=== PATIENT | female | born 1955 | race Caucasian/White ===

== ENCOUNTER 2019-05-02 17:47 | Inpatient (IN) | payer OTHER ==
[~2019-05-02] VITALS: Ht 172.7 cm; Wt 162.8 kg
[2019-05-02] MEDS ORDERED: LORA10TA7 PO (17:55)
[2019-05-02] MEDS ORDERED: LEVO50 PO (17:55)
[2019-05-02] MEDS ORDERED: FURO20 PO (17:55)
[2019-05-02] MEDS ORDERED: ATOR10TA84 PO (17:55)
[2019-05-02] MEDS ORDERED: MULT-1203 PO (17:55)
[2019-05-02] MEDS ORDERED: ASPI81 PO (17:55)
[2019-05-02] MEDS ORDERED: VALS1TAB54 PO (17:55)
[2019-05-02] MEDS ORDERED: RISP2 PO (17:58)
[2019-05-02] MEDS ORDERED: ALBUTEROL SULFATE 5 MG/ML 20 ML NEB SOLN [BULK] NEB ONE (18:00)
[2019-05-02] MEDS ORDERED: MethylPREDNISolone SOD SUCC 125 MG/2 ML VIAL IVP ONE (18:00)
[2019-05-02] MEDS ORDERED: IPRATROPIUM BROMIDE 0.5 MG/2.5 ML NEB SOLUTION NEB ONE (18:00)
[2019-05-02] MEDS ORDERED: 0.9% SODIUM CHLORIDE 10 ML SYRINGE IVP PRN ×2 (18:00→21:45)
[2019-05-02] MEDS ORDERED: QUET25TA PO (18:12)
[2019-05-02] MEDS ORDERED: METF-960 PO (18:12)
[2019-05-02] MEDS ORDERED: BENZ2TAB10 PO (18:12)
[2019-05-02] MEDS ORDERED: IBUP-2071 PO (18:12)
[2019-05-02] MEDS ORDERED: DICY10 PO (18:12)
[2019-05-02] MEDS ORDERED: KDUR10 PO (18:12)
[2019-05-02] MEDS ORDERED: SODIUM CHLORIDE 0.9% 2,500 ML IV ONE (18:15)
[2019-05-02] MEDS ORDERED: SUCCINYLCHOLINE CHLORIDE 20 MG/ML 10 ML VIAL IVP ONE (18:15)
[2019-05-02] MEDS ORDERED: ETOMIDATE 2 MG/ML 10 ML VIAL IVP ONE (18:15)
[2019-05-02] MEDS: PROPOFOL 1000 MG/ISO-OSM 100 ML IV PRN ×2 (18:24→22:56)
[2019-05-02 18:49] LABS: BASOPHILS % (AUTO) 0.2 % (0.0-2.0); EOSINOPHILS % (AUTO) 0.1 % (1.0-6.0); HEMATOCRIT 41.1 % (36-46); HEMOGLOBIN 13.2 g/dL (12.0-16.0); LYMPHOCYTES # (AUTO) 1.7 K/uL (1.0-4.8); LYMPHOCYTES % (AUTO) 8.6 % (22.0-44.0); MEAN CORPUSCULAR HEMOGLOBIN 28.1 pg (26.0-34.0); MEAN CORPUSCULAR VOLUME 88 fL (80-100); MONOCYTES # (AUTO) 0.8 K/uL (0.1-1.0); MONOCYTES % (AUTO) 3.8 % (2.0-9.0); NEUTROPHILS # (AUTO) 17.4 K/uL (1.8-7.7); PLATELET COUNT (AUTO) 509 K/uL (150-450); RED BLOOD CELL COUNT(AUTO) 4.69 MIL/uL (4.00-5.20); RED CELL DISTRIBUTION WIDTH 17.7 % (11.5-14.5)
[2019-05-02 18:51] LABS: NEUTROPHILS % (AUTO) 87.3 % (40.0-70.0)
[2019-05-02 18:54] LABS: ANION GAP 12 mmol/L (8-16); CALCIUM, TOTAL 8.8 mg/dL (8.8-10.5); CARBON DIOXIDE 24 mmol/L (22-29); CHLORIDE 98 mmol/L (98-107); CREATININE 2.48 mg/dL (0.60-1.30); GLOMERULAR FILTR. RATE CALC 19 mL/min (>60); GLUCOSE,RANDOM 268 mg/dL (70-110); POTASSIUM 4.8 mmol/L (3.5-5.1); SODIUM SERUM 134 mmol/L (136-145); UREA NITROGEN, BLOOD 19 mg/dL (7-18)
[2019-05-02 19:01] LABS: PROTHROMBIN TIME 10.3 SEC (9.4-11.6)
[2019-05-02 19:02] LABS: ABG A-A DIFF O2 237.3 mmHg (10-20.0); ABG BASE EXCESS -4.3 mmol/L (-2.0-3.0); ABG CARBOXYHEMOGLOBIN 3.3 % (0.0-1.5); ABG HCO3 20.3 mmol/L (22.0-26.0); ABG METHEMOGLOBIN 0.4 % (0.0-1.5); ABG OXYGEN CONTENT 18.5 mL/dL (15.0-23.0); ABG OXYGEN SATURATION 99.2 % (95.0-98.0); ABG OXYHEMOGLOBIN 95.5 % (94.0-100.0); ABG PCO2 65 mmHg (35-45); PO2, ARTERIAL BG 408.7 mmHg (79.0-87.0); SOURCE, BLOOD GAS ARTERIAL; TEMPERATURE, FAHRENHEIT, BG 100.3 FAHREN (96.0-98.6)
[2019-05-02 19:03] LABS: ABG PH 7.188 (7.35-7.450); O2 DEVICE,BLOOD GAS VENTILATOR (ROOM AIR); PEEP,BG 5 cm H2O; SITE, BLOOD GAS RT RADIAL; SPONTANEOUS VT, BG 449 ml; VT, ABG 550 ml
[2019-05-02 19:13] LABS: B-TYPE NATRIURETIC PEPTIDE 12 pg/mL (0-100)
[2019-05-02 19:19] LABS: ALANINE AMINOTRANSFERASE 15 U/L (12-78); ALBUMIN 2.9 g/dL (3.4-5.0); ALKALINE PHOSPHATASE 116 U/L (46-116); ASPARTATE AMINOTRANSFERASE 15 U/L (15-37); BILIRUBIN,TOTAL 0.3 mg/dL (0.1-1.0); CREATINE KINASE, TOTAL ONLY 198 U/L (26-192); TOTAL PROTEIN, SERUM 7.6 g/dL (6.4-8.2)
[2019-05-02 19:21] LABS: LACTIC ACID 3.9 mmol/L (0.4-2.0)
[2019-05-02 19:26] LABS: PLATELET MORPHOLOGY COMMENT GIANT PLTS PRESENT
[2019-05-02 19:30] LABS: INFLUENZA TYPE A NEGATIVE FOR TYPE A (NEGATIVE); INFLUENZA TYPE B NEGATIVE FOR TYPE B (NEGATIVE)
[2019-05-02] MEDS ORDERED: ACETAMINOPHEN 1000 MG/ISO-OSM 100 ML IV ONE ×2 (19:30→19:45)
[2019-05-02] MEDS ORDERED: NOREPINEPHRINE 4 MG/D5%-WATER 250 ML IV PRN ×2 (19:32→23:20)
[2019-05-02 19:36] LABS: GLUCOSE,POINT OF CARE 263 MG/DL (70-110)
[2019-05-02] MEDS ORDERED: CefTRIAXone SODIUM 2 GM in DEXTROSE 5%-WATER 50 ML IV ONE (19:45)
[2019-05-02] MEDS ORDERED: PIPERACILLIN/TAZO 3.375 GM/D5W 50 ML IV ONE (19:45)
[2019-05-02] MEDS ORDERED: SODIUM CHLORIDE 0.9% 1,000 ML IV ONE (19:45)
[2019-05-02 20:24] LABS: APPEARANCE,URINE CLEAR (CLEAR); BILIRUBIN,URINE NEGATIVE (NEGATIVE); GLUCOSE, URINE (UA) NEGATIVE (NEGATIVE); KETONES,URINE NEGATIVE (NEGATIVE); LEUKOCYTE ESTERASE ,URINE NEGATIVE (NEGATIVE); NITRATE,URINE NEGATIVE (NEGATIVE); OCCULT BLOOD,URINE NEGATIVE (NEGATIVE); PROTEIN,URINE NEGATIVE (NEGATIVE); UROBILINOGEN,URINE 0.2 mg/dL (<=1.0)
[2019-05-02 21:21] LABS: AMPHET/METH SCREEN,URINE NEGATIVE (NEGATIVE); BARBITURATE SCREEN, URINE NEGATIVE (NEGATIVE); BENZODIAZEPINES SCREEN,URINE NEGATIVE (NEGATIVE); CANNABINOID SCREEN,URINE NEGATIVE (NEGATIVE); COCAINE SCREEN,URINE NEGATIVE (NEGATIVE); METHADONE SCREEN, URINE NEGATIVE (NEGATIVE); OPIATE SCREEN,URINE NEGATIVE (NEGATIVE)
[2019-05-02 21:23] LABS: PHENCYCLIDINE SCREEN,URINE NEGATIVE (NEGATIVE)
[2019-05-02] MEDS ORDERED: ACETAMINOPHEN 325 MG TABLET PO PRN ×3 (21:45→23:15)
[2019-05-02 22:15] VITALS: BP 106/65
[2019-05-02] MEDS ORDERED: ALBUTEROL SULFATE 2.5 MG/0.5 ML NEB SOLUTION NEB SCH (23:00)
[2019-05-02] MEDS ORDERED: IPRATROPIUM BROMIDE 0.5 MG/2.5 ML NEB SOLUTION NEB SCH (23:00)
[2019-05-02] MEDS ORDERED: IPRATROPIUM BROMIDE 0.5 MG/2.5 ML NEB SOLUTION NEB PRN ×2 (23:15)
[2019-05-02] MEDS ORDERED: BISACODYL 10 MG RECTAL RECTAL SUPPOSITORY PR PRN (23:15)
[2019-05-02] MEDS ORDERED: ONDANSETRON HCL 4 MG/2 ML VIAL IVP PRN (23:15)
[2019-05-02] MEDS ORDERED: ALBUTEROL SULFATE 2.5 MG/0.5 ML NEB SOLUTION NEB PRN ×2 (23:15)
[2019-05-02] MEDS ORDERED: HYDROCODONE/ACETAMINOPHEN 5-325 MG TABLET PO PRN (23:15)
[2019-05-02] MEDS ORDERED: ZOLPIDEM TARTRATE 5 MG TABLET PO PRN (23:15)
[2019-05-02] MEDS ORDERED: MAGNESIUM HYDROXIDE SUSPENSION 30 ML UDCUP PO PRN (23:15)
[2019-05-02] MEDS ORDERED: MORPHINE SULFATE 2 MG/ML SYRINGE IVP PRN ×2 (23:15)
[2019-05-02] MEDS ORDERED: ACETAMINOPHEN 650 MG/20.3 ML SOLUTION UDCUP NG PRN (23:45)
[2019-05-03] VITALS: BP 110/71
[2019-05-03] MEDS ORDERED: DEXTROSE 50%-WATER 25 GM/50 ML SYRINGE IVP PRN
[2019-05-03] MEDS ORDERED: MAGNESIUM HYDROXIDE SUSPENSION 30 ML UDCUP NG PRN (00:01)
[2019-05-03] MEDS ORDERED: HYDROCODONE/ACETAMINOPHEN 5-325 MG TABLET NG PRN (00:02)
[2019-05-03] MEDS ORDERED: ZOLPIDEM TARTRATE 5 MG TABLET NG PRN (00:03)
[2019-05-03] MEDS: HEPARIN SODIUM,PORCINE 5,000 UNITS/ML VIAL SQ SCH ×3 (00:27→16:32)
[2019-05-03] MEDS: PIPERACILLIN/TAZO 3.375 GM/D5W 50 ML IV SCH ×4 (00:27→17:34)
[2019-05-03] MEDS: MethylPREDNISolone SOD SUCC 125 MG/2 ML VIAL IVP SCH ×4 (00:27→17:29)
[2019-05-03] MEDS: INSULIN LISPRO 100 UNITS/ML SQ PRN ×5 (00:28→21:04)
[2019-05-03] MEDS ORDERED: SODIUM CHLORIDE 0.9% 250 ML IV ONE (00:36)
[2019-05-03 00:52] LABS: THYROID STIMULATING HORMONE 0.56 uIU/mL (0.36-3.74)
[2019-05-03] MEDS: ALBUTEROL SULFATE 2.5 MG/0.5 ML NEB SOLUTION NEB SCH ×6 (02:47→22:50)
[2019-05-03] MEDS: IPRATROPIUM BROMIDE 0.5 MG/2.5 ML NEB SOLUTION NEB SCH ×6 (02:47→22:50)
[2019-05-03 04:00] VITALS: BP 132/81
[2019-05-03 05:17] LABS: BASOPHILS % (AUTO) 0.4 % (0.0-2.0); EOSINOPHILS % (AUTO) 0 % (1.0-6.0); HEMATOCRIT 37.8 % (36-46); HEMOGLOBIN 12.2 g/dL (12.0-16.0); LYMPHOCYTES % (AUTO) 5.4 % (22.0-44.0); MEAN CORPUSCULAR HEMOGLOBIN 28.2 pg (26.0-34.0); MEAN CORPUSCULAR HGB CONC 32.2 G/dL (31.0-37.0); MEAN CORPUSCULAR VOLUME 88 fL (80-100); MONOCYTES # (AUTO) 0.2 K/uL (0.1-1.0); MONOCYTES % (AUTO) 0.9 % (2.0-9.0); NEUTROPHILS # (AUTO) 16.8 K/uL (1.8-7.7); NEUTROPHILS % (AUTO) 93.3 % (40.0-70.0); PLATELET COUNT (AUTO) 360 K/uL (150-450); RED BLOOD CELL COUNT(AUTO) 4.32 MIL/uL (4.00-5.20); RED CELL DISTRIBUTION WIDTH 17.7 % (11.5-14.5)
[2019-05-03 05:33] LABS: PLATELET MORPHOLOGY COMMENT GIANT PLTS PRESENT
[2019-05-03] MEDS: FAMOTIDINE 20 MG/2.5 ML SUSPENSION ORAL.SYG NG SCH ×2 (05:34→17:34)
[2019-05-03] MEDS: PROPOFOL 1000 MG/ISO-OSM 100 ML IV PRN ×2 (05:34→09:18)
[2019-05-03 05:35] LABS: CREATININE 1.72 mg/dL (0.60-1.30); POTASSIUM 4.1 mmol/L (3.5-5.1)
[2019-05-03 05:36] LABS: ALBUMIN 2.5 g/dL (3.4-5.0); BILIRUBIN,TOTAL 0.3 mg/dL (0.1-1.0); CALCIUM, TOTAL 8.1 mg/dL (8.8-10.5); FREE T4 (FREE THYROXINE) 1.37 ng/dL (0.76-1.46); TOTAL PROTEIN, SERUM 6.7 g/dL (6.4-8.2)
[2019-05-03 05:46] LABS: GLUCOSE,POINT OF CARE 271 MG/DL (70-110)
[2019-05-03] MEDS ORDERED: LEVOTHYROXINE SODIUM 50 MCG TABLET NG SCH (06:30)
[2019-05-03 07:21] LABS: GLUCOSE,POINT OF CARE 242 MG/DL (70-110)
[2019-05-03 08:00] VITALS: BP 137/89
[2019-05-03] MEDS ORDERED: BENZTROPINE MESYLATE 2 MG TABLET NG SCH (09:00)
[2019-05-03] MEDS ORDERED: DOCUSATE SODIUM 100 MG/10 ML LIQUID UDCUP NG SCH (09:00)
[2019-05-03] MEDS ORDERED: ASPIRIN 81 MG CHEWABLE TABLET NG SCH (09:00)
[2019-05-03] MEDS ORDERED: ATORVASTATIN CALCIUM 10 MG TABLET NG SCH (09:00)
[2019-05-03 12:00] VITALS: BP 132/84
[2019-05-03 13:57] LABS: ABG A-A DIFF O2 154.8 mmHg (10-20.0); ABG BASE EXCESS -3.1 mmol/L (-2.0-3.0); ABG CARBOXYHEMOGLOBIN 0.6 % (0.0-1.5); ABG HCO3 22.3 mmol/L (22.0-26.0); ABG METHEMOGLOBIN 0.3 % (0.0-1.5); ABG OXYGEN CONTENT 17.8 mL/dL (15.0-23.0); ABG OXYGEN SATURATION 96.3 % (95.0-98.0); ABG OXYHEMOGLOBIN 95.4 % (94.0-100.0); ABG PCO2 37 mmHg (35-45); ABG PH 7.393 (7.35-7.450); ABG TOTAL HEMOGLOBIN 13.2 G/dL (12.0-18.0); PO2, ARTERIAL BG 88.5 mmHg (79.0-87.0); SOURCE, BLOOD GAS ARTERIAL; TEMPERATURE, FAHRENHEIT, BG 98.2 FAHREN (96.0-98.6)
[2019-05-03 13:58] LABS: O2 DEVICE,BLOOD GAS VENTILATOR (ROOM AIR); PEEP,BG 0 cm H2O; PRESSURE SUPPORT, BG 8 cm H2O; SITE, BLOOD GAS RT RADIAL; SPONTANEOUS VT, BG 641 ml; VENT MODE, BG CPAP (ROOM AIR); VT, ABG 550 ml
[2019-05-03 14:26] LABS: GLUCOSE,POINT OF CARE 223 MG/DL (70-110)
[2019-05-03 16:00] VITALS: BP 119/74
[2019-05-03 17:52] LABS: GLUCOSE,POINT OF CARE 200 MG/DL (70-110)
[2019-05-03 20:00] VITALS: BP 126/85
[2019-05-03] MEDS ORDERED: ZOLPIDEM TARTRATE 5 MG TABLET PO PRN (20:45)
[2019-05-03] MEDS ORDERED: MAGNESIUM HYDROXIDE SUSPENSION 30 ML UDCUP PO PRN (20:45)
[2019-05-03 20:49] LABS: HEMOGLOBIN A1C 7.9 % (4.5-6.2)
[2019-05-03] MEDS ORDERED: DOCUSATE SODIUM 100 MG/10 ML LIQUID UDCUP PO SCH (21:00)
[2019-05-03] MEDS: BENZTROPINE MESYLATE 2 MG TABLET PO SCH (21:03)
[2019-05-03] MEDS ORDERED: ACETAMINOPHEN 650 MG/20.3 ML SOLUTION UDCUP PO PRN (23:45)
[2019-05-04] VITALS: BP 141/86
[2019-05-04] MEDS ORDERED: HYDROCODONE/ACETAMINOPHEN 5-325 MG TABLET PO PRN (00:02)
[2019-05-04] MEDS: HEPARIN SODIUM,PORCINE 5,000 UNITS/ML VIAL SQ SCH ×4 (00:21→23:52)
[2019-05-04] MEDS: PIPERACILLIN/TAZO 3.375 GM/D5W 50 ML IV SCH ×5 (00:21→23:53)
[2019-05-04] MEDS: MethylPREDNISolone SOD SUCC 125 MG/2 ML VIAL IVP SCH ×5 (00:21→23:52)
[2019-05-04] MEDS: IPRATROPIUM BROMIDE 0.5 MG/2.5 ML NEB SOLUTION NEB SCH ×5 (02:51→19:18)
[2019-05-04] MEDS: ALBUTEROL SULFATE 2.5 MG/0.5 ML NEB SOLUTION NEB SCH ×5 (02:51→19:18)
[2019-05-04 04:00] VITALS: BP 140/90
[2019-05-04 05:29] LABS: BASOPHILS % (AUTO) 0.1 % (0.0-2.0); EOSINOPHILS % (AUTO) 0.1 % (1.0-6.0); HEMOGLOBIN 12.5 g/dL (12.0-16.0); LYMPHOCYTES # (AUTO) 0.7 K/uL (1.0-4.8); LYMPHOCYTES % (AUTO) 4.4 % (22.0-44.0); MEAN CORPUSCULAR HEMOGLOBIN 28.5 pg (26.0-34.0); MEAN CORPUSCULAR VOLUME 86 fL (80-100); MONOCYTES # (AUTO) 0.5 K/uL (0.1-1.0); MONOCYTES % (AUTO) 2.7 % (2.0-9.0); NEUTROPHILS # (AUTO) 15.6 K/uL (1.8-7.7); PLATELET COUNT (AUTO) 416 K/uL (150-450); RED CELL DISTRIBUTION WIDTH 17.6 % (11.5-14.5)
[2019-05-04 05:32] LABS: NEUTROPHILS % (AUTO) 92.7 % (40.0-70.0)
[2019-05-04] MEDS: FAMOTIDINE 20 MG TABLET PO SCH ×2 (05:35→16:57)
[2019-05-04] MEDS: LEVOTHYROXINE SODIUM 50 MCG TABLET PO SCH (05:35)
[2019-05-04] MEDS: INSULIN LISPRO 100 UNITS/ML SQ PRN ×4 (05:37→21:11)
[2019-05-04 05:44] LABS: ALBUMIN 2.7 g/dL (3.4-5.0); BILIRUBIN,TOTAL 0.3 mg/dL (0.1-1.0); CALCIUM, TOTAL 8.7 mg/dL (8.8-10.5); CREATININE 1.45 mg/dL (0.60-1.30); POTASSIUM 3.9 mmol/L (3.5-5.1); TOTAL PROTEIN, SERUM 7.3 g/dL (6.4-8.2)
[2019-05-04 06:07] LABS: GLUCOSE,POINT OF CARE 210 MG/DL (70-110)
[2019-05-04 08:00] VITALS: BP 129/94
[2019-05-04] MEDS: ATORVASTATIN CALCIUM 10 MG TABLET PO SCH (08:33)
[2019-05-04] MEDS: ASPIRIN 81 MG CHEWABLE TABLET PO SCH (08:34)
[2019-05-04] MEDS: DOCUSATE SODIUM 100 MG CAPSULE PO SCH ×2 (08:34→21:12)
[2019-05-04] MEDS: BENZTROPINE MESYLATE 2 MG TABLET PO SCH ×2 (08:35→21:12)
[2019-05-04 12:07] LABS: GLUCOSE,POINT OF CARE 274 MG/DL (70-110)
[2019-05-04] MEDS ORDERED: ETOMIDATE 2 MG/ML 10 ML VIAL IV ONE (14:45)
[2019-05-04 15:12] LABS: CALCIUM, TOTAL 8.4 mg/dL (8.8-10.5); CREATININE 1.62 mg/dL (0.60-1.30)
[2019-05-04 16:00] VITALS: BP 133/80
[2019-05-04 18:17] LABS: GLUCOSE,POINT OF CARE 247 MG/DL (70-110)
[2019-05-04 20:18] VITALS: BP 138/70
[2019-05-04] MEDS ORDERED: SODIUM CHLORIDE 0.9% 100 ML ONE (21:05)
[2019-05-04 23:52] VITALS: BP 134/73
[2019-05-05] MEDS: IPRATROPIUM BROMIDE 0.5 MG/2.5 ML NEB SOLUTION NEB SCH ×7 (00:06→23:04)
[2019-05-05] MEDS: ALBUTEROL SULFATE 2.5 MG/0.5 ML NEB SOLUTION NEB SCH ×7 (00:06→23:04)
[2019-05-05 05:18] VITALS: BP 158/96
[2019-05-05 06:42] LABS: BASOPHILS % (AUTO) 0.1 % (0.0-2.0); EOSINOPHILS % (AUTO) 0 % (1.0-6.0); HEMOGLOBIN 13.1 g/dL (12.0-16.0); LYMPHOCYTES # (AUTO) 0.8 K/uL (1.0-4.8); LYMPHOCYTES % (AUTO) 5.9 % (22.0-44.0); MEAN CORPUSCULAR HEMOGLOBIN 28.3 pg (26.0-34.0); MEAN CORPUSCULAR HGB CONC 32.9 G/dL (31.0-37.0); MEAN CORPUSCULAR VOLUME 86 fL (80-100); MONOCYTES # (AUTO) 0.5 K/uL (0.1-1.0); MONOCYTES % (AUTO) 3.9 % (2.0-9.0); NEUTROPHILS # (AUTO) 12.1 K/uL (1.8-7.7); PLATELET COUNT (AUTO) 427 K/uL (150-450); RED BLOOD CELL COUNT(AUTO) 4.64 MIL/uL (4.00-5.20); RED CELL DISTRIBUTION WIDTH 17.5 % (11.5-14.5)
[2019-05-05] MEDS: FAMOTIDINE 20 MG TABLET PO SCH ×2 (06:45→17:27)
[2019-05-05] MEDS: LEVOTHYROXINE SODIUM 50 MCG TABLET PO SCH (06:45)
[2019-05-05] MEDS: MethylPREDNISolone SOD SUCC 125 MG/2 ML VIAL IVP SCH ×3 (06:45→17:29)
[2019-05-05] MEDS: PIPERACILLIN/TAZO 3.375 GM/D5W 50 ML IV SCH ×3 (06:46→17:27)
[2019-05-05 06:49] LABS: NEUTROPHILS % (AUTO) 90.1 % (40.0-70.0)
[2019-05-05] MEDS: INSULIN LISPRO 100 UNITS/ML SQ PRN ×4 (06:50→21:42)
[2019-05-05 06:56] LABS: ALBUMIN 2.9 g/dL (3.4-5.0); BILIRUBIN,TOTAL 0.3 mg/dL (0.1-1.0); CALCIUM, TOTAL 8.7 mg/dL (8.8-10.5); CREATININE 1.39 mg/dL (0.60-1.30); POTASSIUM 4.1 mmol/L (3.5-5.1); TOTAL PROTEIN, SERUM 7.6 g/dL (6.4-8.2)
[2019-05-05 07:11] LABS: GLUCOSE,POINT OF CARE 204 MG/DL (70-110)
[2019-05-05 08:00] VITALS: BP 155/93
[2019-05-05] MEDS: HEPARIN SODIUM,PORCINE 5,000 UNITS/ML VIAL SQ SCH ×3 (08:01→23:59)
[2019-05-05] MEDS: BENZTROPINE MESYLATE 2 MG TABLET PO SCH ×2 (08:02→21:43)
[2019-05-05] MEDS: ASPIRIN 81 MG CHEWABLE TABLET PO SCH (08:02)
[2019-05-05] MEDS: ATORVASTATIN CALCIUM 10 MG TABLET PO SCH (08:02)
[2019-05-05] MEDS: DOCUSATE SODIUM 100 MG CAPSULE PO SCH ×2 (08:03→21:00)
[2019-05-05 11:35] VITALS: BP 143/55
[2019-05-05] MEDS: RisperiDONE 2 MG TABLET PO SCH ×2 (13:31→21:43)
[2019-05-05] MEDS: LORATADINE 10 MG TABLET PO SCH (13:31)
[2019-05-05 15:40] VITALS: BP 146/57
[2019-05-05 17:07] LABS: GLUCOMETER DEV NAME(LOC) 5N.2; GLUCOSE,POINT OF CARE 253 MG/DL (70-110)
[2019-05-05 17:07] LABS: GLUCOMETER DEV NAME(LOC) 5N.2; GLUCOSE,POINT OF CARE 258 MG/DL (70-110)
[2019-05-05 17:07] LABS: GLUCOMETER DEV NAME(LOC) 5N.2; GLUCOSE,POINT OF CARE 285 MG/DL (70-110)
[2019-05-05 20:15] VITALS: BP 143/55
[2019-05-05 21:06] LABS: GLUCOMETER DEV NAME(LOC) 5N.2; GLUCOSE,POINT OF CARE 282 MG/DL (70-110)
[2019-05-05] MEDS: QUEtiapine FUMARATE 25 MG TABLET PO SCH (21:43)
[2019-05-06 00:31] VITALS: BP 154/93
[2019-05-06 02:45] LABS: GLUCOMETER DEV NAME(LOC) 5N.2; GLUCOSE,POINT OF CARE 337 MG/DL (70-110)
[2019-05-06] MEDS: ALBUTEROL SULFATE 2.5 MG/0.5 ML NEB SOLUTION NEB SCH ×6 (02:56→23:01)
[2019-05-06] MEDS: IPRATROPIUM BROMIDE 0.5 MG/2.5 ML NEB SOLUTION NEB SCH ×6 (02:56→23:01)
[2019-05-06 04:43] VITALS: BP 147/87
[2019-05-06] MEDS: FAMOTIDINE 20 MG TABLET PO SCH ×2 (05:42→16:57)
[2019-05-06] MEDS: PIPERACILLIN/TAZO 3.375 GM/D5W 50 ML IV SCH ×2 (05:42)
[2019-05-06] MEDS: LEVOTHYROXINE SODIUM 50 MCG TABLET PO SCH (05:42)
[2019-05-06] MEDS: INSULIN LISPRO 100 UNITS/ML SQ PRN ×4 (05:43→21:29)
[2019-05-06] MEDS: MethylPREDNISolone SOD SUCC 125 MG/2 ML VIAL IVP SCH ×5 (05:43→23:55)
[2019-05-06 07:27] LABS: BASOPHILS % (AUTO) 0.1 % (0.0-2.0); EOSINOPHILS % (AUTO) 0 % (1.0-6.0); HEMATOCRIT 38.4 % (36-46); LYMPHOCYTES # (AUTO) 0.9 K/uL (1.0-4.8); MEAN CORPUSCULAR HEMOGLOBIN 29.2 pg (26.0-34.0); MEAN CORPUSCULAR VOLUME 86 fL (80-100); MONOCYTES # (AUTO) 0.6 K/uL (0.1-1.0); NEUTROPHILS # (AUTO) 9.7 K/uL (1.8-7.7); PLATELET COUNT (AUTO) 386 K/uL (150-450); RED BLOOD CELL COUNT(AUTO) 4.46 MIL/uL (4.00-5.20); RED CELL DISTRIBUTION WIDTH 17.4 % (11.5-14.5)
[2019-05-06 07:28] LABS: NEUTROPHILS % (AUTO) 86.9 % (40.0-70.0)
[2019-05-06 07:47] VITALS: BP 146/93
[2019-05-06 07:51] LABS: ALBUMIN 2.7 g/dL (3.4-5.0); BILIRUBIN,TOTAL 0.3 mg/dL (0.1-1.0); CALCIUM, TOTAL 8.7 mg/dL (8.8-10.5); CREATININE 1.33 mg/dL (0.60-1.30); POTASSIUM 4.3 mmol/L (3.5-5.1); TOTAL PROTEIN, SERUM 6.9 g/dL (6.4-8.2)
[2019-05-06] MEDS: ASPIRIN 81 MG CHEWABLE TABLET PO SCH (08:19)
[2019-05-06] MEDS: LORATADINE 10 MG TABLET PO SCH (08:19)
[2019-05-06] MEDS: RisperiDONE 2 MG TABLET PO SCH ×2 (08:19→21:25)
[2019-05-06] MEDS: HEPARIN SODIUM,PORCINE 5,000 UNITS/ML VIAL SQ SCH ×3 (08:19→23:54)
[2019-05-06] MEDS: ATORVASTATIN CALCIUM 10 MG TABLET PO SCH (08:19)
[2019-05-06] MEDS: BENZTROPINE MESYLATE 2 MG TABLET PO SCH ×2 (08:23→21:25)
[2019-05-06] MEDS: DOCUSATE SODIUM 100 MG CAPSULE PO SCH ×2 (08:27→21:00)
[2019-05-06] MEDS: CEFUROXIME AXETIL 250 MG TABLET PO SCH ×2 (11:05→21:25)
[2019-05-06 11:16] VITALS: BP 137/81
[2019-05-06 15:30] VITALS: BP 148/97
[2019-05-06 19:12] VITALS: BP 143/95
[2019-05-06 20:07] LABS: GLUCOMETER DEV NAME(LOC) 5S.1; GLUCOSE,POINT OF CARE 335 MG/DL (70-110)
[2019-05-06 20:07] LABS: GLUCOMETER DEV NAME(LOC) 5N.2; GLUCOSE,POINT OF CARE 332 MG/DL (70-110)
[2019-05-06 20:07] LABS: GLUCOMETER DEV NAME(LOC) 5S.1; GLUCOSE,POINT OF CARE 260 MG/DL (70-110)
[2019-05-06] MEDS: QUEtiapine FUMARATE 25 MG TABLET PO SCH (21:25)
[2019-05-07 00:25] VITALS: BP 141/90
[2019-05-07] MEDS: IPRATROPIUM BROMIDE 0.5 MG/2.5 ML NEB SOLUTION NEB SCH ×6 (02:41→23:10)
[2019-05-07] MEDS: ALBUTEROL SULFATE 2.5 MG/0.5 ML NEB SOLUTION NEB SCH ×6 (02:41→23:10)
[2019-05-07 05:13] VITALS: BP 150/88
[2019-05-07 05:31] LABS: GLUCOMETER DEV NAME(LOC) 5S.1; GLUCOSE,POINT OF CARE 335 MG/DL (70-110)
[2019-05-07] MEDS: FAMOTIDINE 20 MG TABLET PO SCH ×2 (06:22→17:30)
[2019-05-07] MEDS: LEVOTHYROXINE SODIUM 50 MCG TABLET PO SCH (06:22)
[2019-05-07] MEDS: MethylPREDNISolone SOD SUCC 125 MG/2 ML VIAL IVP SCH ×2 (06:23→12:14)
[2019-05-07] MEDS: INSULIN LISPRO 100 UNITS/ML SQ PRN ×4 (06:24→20:48)
[2019-05-07 06:56] LABS: BASOPHILS % (AUTO) 0.1 % (0.0-2.0); EOSINOPHILS % (AUTO) 0 % (1.0-6.0); HEMATOCRIT 39.8 % (36-46); HEMOGLOBIN 13.3 g/dL (12.0-16.0); LYMPHOCYTES # (AUTO) 0.8 K/uL (1.0-4.8); LYMPHOCYTES % (AUTO) 7.3 % (22.0-44.0); MEAN CORPUSCULAR HEMOGLOBIN 29.1 pg (26.0-34.0); MEAN CORPUSCULAR HGB CONC 33.4 G/dL (31.0-37.0); MEAN CORPUSCULAR VOLUME 87 fL (80-100); MONOCYTES # (AUTO) 0.6 K/uL (0.1-1.0); MONOCYTES % (AUTO) 4.9 % (2.0-9.0); NEUTROPHILS # (AUTO) 10.2 K/uL (1.8-7.7); PLATELET COUNT (AUTO) 412 K/uL (150-450); RED BLOOD CELL COUNT(AUTO) 4.56 MIL/uL (4.00-5.20); RED CELL DISTRIBUTION WIDTH 17.6 % (11.5-14.5)
[2019-05-07 07:04] LABS: NEUTROPHILS % (AUTO) 87.7 % (40.0-70.0)
[2019-05-07 07:41] LABS: GLUCOMETER DEV NAME(LOC) 5S.1; GLUCOSE,POINT OF CARE 312 MG/DL (70-110)
[2019-05-07 07:49] VITALS: BP 146/67
[2019-05-07] MEDS: HEPARIN SODIUM,PORCINE 5,000 UNITS/ML VIAL SQ SCH ×3 (08:00→23:31)
[2019-05-07] MEDS: CEFUROXIME AXETIL 250 MG TABLET PO SCH ×2 (08:08→20:41)
[2019-05-07] MEDS: ASPIRIN 81 MG CHEWABLE TABLET PO SCH (08:08)
[2019-05-07] MEDS: LORATADINE 10 MG TABLET PO SCH (08:08)
[2019-05-07] MEDS: DOCUSATE SODIUM 100 MG CAPSULE PO SCH ×2 (08:09→20:41)
[2019-05-07] MEDS: RisperiDONE 2 MG TABLET PO SCH ×2 (08:09→20:42)
[2019-05-07] MEDS: ATORVASTATIN CALCIUM 10 MG TABLET PO SCH (08:09)
[2019-05-07] MEDS: BENZTROPINE MESYLATE 2 MG TABLET PO SCH ×2 (08:09→20:41)
[2019-05-07 15:12] VITALS: BP 140/101
[2019-05-07] MEDS: MethylPREDNISolone SOD SUCC 40 MG/ML VIAL IVP SCH ×2 (17:30→23:31)
[2019-05-07] MEDS ORDERED: CEFU250T87 PO (18:28)
[2019-05-07] MEDS ORDERED: IPRA3AMP24 IH (18:38)
[2019-05-07] MEDS ORDERED: ALBU8HFA IH (18:39)
[2019-05-07] MEDS ORDERED: PRED20 PO ×2 (18:40→18:41)
[2019-05-07] MEDS ORDERED: PRED10 PO (18:46)
[2019-05-07 20:20] VITALS: BP 154/87
[2019-05-07] MEDS: QUEtiapine FUMARATE 25 MG TABLET PO SCH (20:42)
[2019-05-08 00:16] LABS: GLUCOMETER DEV NAME(LOC) 5S.1; GLUCOSE,POINT OF CARE 335 MG/DL (70-110)
[2019-05-08 00:16] LABS: GLUCOMETER DEV NAME(LOC) 5S.1; GLUCOSE,POINT OF CARE 328 MG/DL (70-110)
[2019-05-08 00:21] VITALS: BP 145/81
[2019-05-08] MEDS: ALBUTEROL SULFATE 2.5 MG/0.5 ML NEB SOLUTION NEB SCH ×4 (03:26→14:58)
[2019-05-08] MEDS: IPRATROPIUM BROMIDE 0.5 MG/2.5 ML NEB SOLUTION NEB SCH ×4 (03:26→14:58)
[2019-05-08 04:44] VITALS: BP 143/84
[2019-05-08] MEDS: LEVOTHYROXINE SODIUM 50 MCG TABLET PO SCH (05:53)
[2019-05-08] MEDS: FAMOTIDINE 20 MG TABLET PO SCH (05:53)
[2019-05-08] MEDS: MethylPREDNISolone SOD SUCC 40 MG/ML VIAL IVP SCH ×2 (05:53→12:23)
[2019-05-08] MEDS: INSULIN LISPRO 100 UNITS/ML SQ PRN ×2 (05:56→12:30)
[2019-05-08 06:55] LABS: BASOPHILS % (AUTO) 0.1 % (0.0-2.0); EOSINOPHILS % (AUTO) 0 % (1.0-6.0); HEMATOCRIT 40.9 % (36-46); HEMOGLOBIN 13.5 g/dL (12.0-16.0); LYMPHOCYTES % (AUTO) 6.5 % (22.0-44.0); MEAN CORPUSCULAR HEMOGLOBIN 28.5 pg (26.0-34.0); MEAN CORPUSCULAR HGB CONC 32.9 G/dL (31.0-37.0); MEAN CORPUSCULAR VOLUME 87 fL (80-100); MONOCYTES # (AUTO) 0.7 K/uL (0.1-1.0); MONOCYTES % (AUTO) 4.4 % (2.0-9.0); NEUTROPHILS # (AUTO) 14.1 K/uL (1.8-7.7); PLATELET COUNT (AUTO) 333 K/uL (150-450); RED BLOOD CELL COUNT(AUTO) 4.73 MIL/uL (4.00-5.20); RED CELL DISTRIBUTION WIDTH 17.8 % (11.5-14.5)
[2019-05-08 07:26] VITALS: BP 146/104
[2019-05-08 07:28] LABS: ALBUMIN 2.8 g/dL (3.4-5.0); BILIRUBIN,TOTAL 0.3 mg/dL (0.1-1.0); CALCIUM, TOTAL 8.8 mg/dL (8.8-10.5); CREATININE 1.21 mg/dL (0.60-1.30); POTASSIUM 4.2 mmol/L (3.5-5.1); TOTAL PROTEIN, SERUM 6.8 g/dL (6.4-8.2)
[2019-05-08 07:32] LABS: PLATELET MORPHOLOGY COMMENT INCREASED
[2019-05-08] MEDS: BENZTROPINE MESYLATE 2 MG TABLET PO SCH (09:19)
[2019-05-08] MEDS: HEPARIN SODIUM,PORCINE 5,000 UNITS/ML VIAL SQ SCH (09:20)
[2019-05-08] MEDS: ASPIRIN 81 MG CHEWABLE TABLET PO SCH (09:20)
[2019-05-08] MEDS: CEFUROXIME AXETIL 250 MG TABLET PO SCH (09:20)
[2019-05-08] MEDS: DOCUSATE SODIUM 100 MG CAPSULE PO SCH (09:20)
[2019-05-08] MEDS: RisperiDONE 2 MG TABLET PO SCH (09:20)
[2019-05-08] MEDS: ATORVASTATIN CALCIUM 10 MG TABLET PO SCH (09:20)
[2019-05-08] MEDS: LORATADINE 10 MG TABLET PO SCH (09:20)
[2019-05-08 11:54] VITALS: BP 139/95
[2019-05-08 15:18] VITALS: BP 131/85
[2019-05-08 22:42] LABS: GLUCOMETER DEV NAME(LOC) 5N.2; GLUCOSE,POINT OF CARE 335 MG/DL (70-110)
[2019-05-08 22:42] LABS: GLUCOMETER DEV NAME(LOC) 5N.2; GLUCOSE,POINT OF CARE 294 MG/DL (70-110)
[2019-05-09 06:57] LABS: GLUCOMETER DEV NAME(LOC) 5S.2A; GLUCOSE,POINT OF CARE 266 MG/DL (70-110)
== END 2019-05-08 17:20 | disposition home health service (06) | DRG 871 ==
LOC: EMS 17:50 → EDBD 17:50 → ICU 19:00 → 5S 05-04 18:35
PROVIDERS: ADMIT Hospitalist; ATTEND Hospitalist
PROC: 5A1935Z Respiratory Ventilation, Less than 24 Consecutive Hours (ICD-10-PCS; principal; 2019-05-02)
PROC: 0BH17EZ Insertion of Endotracheal Airway into Trachea, Via Natural or Artificial Opening (ICD-10-PCS; 2019-05-02)
PROC: 06HM33Z Insertion of Infusion Device into Right Femoral Vein, Percutaneous Approach (ICD-10-PCS; 2019-05-02)
PROC: B54BZZA Ultrasonography of Right Lower Extremity Veins, Guidance (ICD-10-PCS; 2019-05-02)
PROC: 5A09357 Assistance with Respiratory Ventilation, Less than 24 Consecutive Hours, Continuous Positive Airway Pressure (ICD-10-PCS; 2019-05-02)
DX: A41.9 Sepsis, unspecified organism (principal); E43 Unspecified severe protein-calorie malnutrition; J96.02 Acute respiratory failure with hypercapnia; N17.9 Acute kidney failure, unspecified; E87.2 Acidosis; Z68.43 Body mass index [BMI] 50.0-59.9, adult; G93.40 Encephalopathy, unspecified; E87.1 Hypo-osmolality and hyponatremia; J98.11 Atelectasis; J44.1 Chronic obstructive pulmonary disease with (acute) exacerbation; E03.9 Hypothyroidism, unspecified; E78.5 Hyperlipidemia, unspecified; E66.01 Morbid (severe) obesity due to excess calories; E11.9 Type 2 diabetes mellitus without complications
CPT/HCPCS: 36600; 51702; 76770; 80307; 82805; 83036; 83605; 84145; 84439; 84443; 87040; 87070; 87081; 87205; 87804; 93005; 93306; 93970; 94002; 94003; 94640; 94644; 94660; 97116; 97163; 97530; 99291; G0378; J0131; J0696; J1644; J2543; J2704; J2920; J2930; J3490; J7050; J7060